=== PATIENT | male | born 1960 | race Caucasian/White ===

== ENCOUNTER 2018-11-15 07:45 | Outpatient (CLI) | payer BC ==
--- NOTE | 2018-11-15 08:06 | ULT ---
Exam: Right upper quadrant ultrasound: HISTORY: Elevated liver enzymes COMPARISON: None FINDINGS: Visualized liver:Unremarkable. Gallbladder:No evidence of gallstones, wall thickening, edema, or pericholecystic fluid. Common bile duct:Within normal limits. The visualized pancreas and right kidney are unremarkable. No evidence for abscess or abnormal fluid collection in the right upper quadrant. IMPRESSION: Unremarkable right upper quadrant ultrasound. No evidence of gallstones.
== END 2018-11-15 07:46 | disposition home or self-care (01) ==
LOC: BICULT 07:45
PROVIDERS: ATTEND Physician Assistant
DX: R74.8 Abnormal levels of other serum enzymes (principal)
CPT/HCPCS: 76705

== ENCOUNTER 2021-04-25 12:12 | Outpatient (CLI) | payer BC | END 2021-04-25 12:13 | disposition home or self-care (01) | LOC: BICRAD 12:12 | PROVIDERS: ATTEND Physician Assistant | DX: S89.91XA Unspecified injury of right lower leg, initial encounter (principal); M25.461 Effusion, right knee ==

== ENCOUNTER 2021-05-12 07:47 | Outpatient (CLI) | payer BC | END 2021-05-12 07:48 | disposition home or self-care (01) | LOC: TBSIIMAG 07:47 | PROVIDERS: ATTEND Physician Assistant | DX: S72.424D Nondisplaced fracture of lateral condyle of right femur, subsequent encounter for closed fracture with routine healing (principal); S72.431D Displaced fracture of medial condyle of right femur, subsequent encounter for closed fracture with routine healing; S83.231D Complex tear of medial meniscus, current injury, right knee, subsequent encounter; S83.421D Sprain of lateral collateral ligament of right knee, subsequent encounter ==

== ENCOUNTER 2022-01-13 07:44 | Outpatient (CLI) | payer BC | END 2022-01-13 07:45 | disposition home or self-care (01) | LOC: BICCT 07:44 | PROVIDERS: ATTEND Nurse Practitioner Family | DX: Z12.2 Encounter for screening for malignant neoplasm of respiratory organs (principal); F17.210 Nicotine dependence, cigarettes, uncomplicated | CPT/HCPCS: 71271 ==

== ENCOUNTER 2023-01-23 07:27 | Outpatient (CLI) | payer BC | END 2023-01-23 07:28 | disposition home or self-care (01) | LOC: BICCT 07:27 | PROVIDERS: ATTEND Nurse Practitioner Family | DX: Z12.2 Encounter for screening for malignant neoplasm of respiratory organs (principal); F17.218 Nicotine dependence, cigarettes, with other nicotine-induced disorders | CPT/HCPCS: 71271 ==

== ENCOUNTER 2025-02-05 07:37 | Outpatient (CLI) | payer OTHER | END 2025-02-05 07:38 | disposition home or self-care (01) | LOC: BICCT 07:37 | PROVIDERS: ATTEND Nurse Practitioner Family | DX: Z12.2 Encounter for screening for malignant neoplasm of respiratory organs (principal); F17.218 Nicotine dependence, cigarettes, with other nicotine-induced disorders; J44.1 Chronic obstructive pulmonary disease with (acute) exacerbation | CPT/HCPCS: 71271 ==